=== PATIENT | male | born 2000 | race Caucasian/White ===

== ENCOUNTER 2019-04-12 12:53 | Emergency (ER) | payer BC ==
[2019-04-12] MEDS ORDERED: Sodium Chloride 0.9% 1,000 ML IV ONE (12:54)
[2019-04-12] MEDS ORDERED: Ketorolac 30 MG/ML SDV IVPUSH ONE (12:54)
[2019-04-12] MEDS ORDERED: Ondansetron 4 MG/2 ML SDV IVPUSH ONE (12:54)
--- NOTE | 2019-04-12 13:00 | EDM.PDOC ---
ED HPI GENERAL MEDICAL PROBLEM - General Chief Complaint: General Stated Complaint: ABD PAIN Time Seen by Provider: 04/12/19 13:00 Source of Information: Reports: Patient History Limitations: Reports: No Limitations - History of Present Illness INITIAL COMMENTS - FREE TEXT/NARRATIVE: HISTORY AND PHYSICAL: History of present illness: Patient is a 18-year-old male who presents to the emergency room with complaints of right lower quadrant pain. He states that the pain does radiate into his flank and groin. He did have some nausea this morning, has resolved since that time. Has been using Tylenol and ibuprofen. Last ibuprofen was at 10 AM this morning. Patient denies any fever, chills, headache, change in vision, syncope or near syncope. Denies any chest pain, back pain, shortness of breath or cough. Denies any diarrhea, constipation or dysuria. Has not noted any blood in urine or stool. Patient has been eating and drinking appropriately. Review of systems: As per history of present illness and below otherwise all systems reviewed and negative. Past medical history: As per history of present illness and as reviewed below otherwise noncontributory. Surgical history: As per history of present illness and as reviewed below otherwise noncontributory. Social history: See social history for further information Family history: As per history of present illness and as reviewed below otherwise noncontributory. Physical exam: General: Developed and well-nourished 18-year-old male. Alert and oriented. Nontoxic appearing and in no acute distress HEENT: Atraumatic, normocephalic, pupils equal and reactive bilaterally, negative for conjunctival pallor or scleral icterus, mucous membranes moist, TMs normal bilaterally, throat clear, neck supple, nontender, trachea midline. No drooling or trismus noted. No meningeal signs. No hot potato voice noted. Lungs: Clear to auscultation, breath sounds equal bilaterally, chest nontender. Heart: S1S2, regular rate and rhythm without overt murmur Abdomen: Soft, nondistended, right lower quadrant tenderness. Negative for masses or hepatosplenomegaly. Negative for costovertebral tenderness. Pelvis: Stable nontender. Genitourinary: Deferred. Rectal: Deferred. Skin: Intact, warm, dry. No lesions or rashes noted. Extremities: Atraumatic, moves all extremities per self without difficulty or deficits, negative for cords or calf pain. Neurovascular unremarkable. Neuro: Awake, alert, oriented. Cranial nerves II through XII unremarkable. Cerebellum unremarkable. Motor and sensory unremarkable throughout. Exam nonfocal. Notes: Lab work is unremarkable. CT shows a right sided hydronephrosis with a 2 mm distal right stone. This information was shared with the patient. Signs and symptoms that would prompt him to return to the emergency room or reviewed and discussed. Supportive care measures were reviewed and discussed. Voices understanding and is agreeable to plan of care. Denies any further questions or concerns at this time. Diagnostics: CBC, CMP, UA, CT abdomen and pelvis Therapeutics: IV fluid, morphine, Zofran Prescription: Flomax Tramadol Impression: Kidney stone, right Plan: 1. Increase her fluids. Take the medications as prescribed. 2. Tylenol and/or ibuprofen as needed for pain management. You may take tramadol for moderate to severe pain. 3. Follow-up with your primary care provider as we discussed. Return to the ED as needed and as discussed. Definitive disposition and diagnosis as appropriate pending reevaluation and review of above. Right abdominal/back Pain Score (Numeric/FACES): 7 Right testic;e Pain Score (Numeric/FACES): 8 - Related Data Allergies Allergy/AdvReac Type Severity Reaction Status Date / Time No Known Allergies Allergy Verified 04/12/19 13:02 Home Meds: Home Meds Tamsulosin [Tamsulosin 24 Hr] 0.4 mg PO DAILY #10 cap.er 04/12/19 [Rx] traMADol [Ultram] 50 mg PO Q4H PRN #15 tab 04/12/19 [Rx] ED ROS GENERAL - Review of Systems Review Of Systems: ROS reveals no pertinent complaints other than HPI. ED EXAM, GENERAL - Physical Exam Exam: See Below (See dictation) Course - Vital Signs Last Recorded V/S: Last Vital Signs Temp 97.8 F 04/12/19 13:03 Pulse 89 04/12/19 13:03 Resp 16 04/12/19 13:03 BP 141/87 H 04/12/19 13:03 Pulse Ox 93 L 04/12/19 13:03 - Orders/Labs/Meds Orders: Active Orders 24 hr Category Date Time Status UA RFX GEORGE AND CULT IF INDIC [URIN] Stat Lab 04/12/19 12:54 Ordered Labs: Laboratory Tests 04/12/19 04/12/19 Range/Units 13:08 13:08 WBC 6.78 (4.0-11.0) K/uL RBC 5.71 (4.50-5.90) M/uL Hgb 16.5 (13.0-17.0) g/dL Hct 47.0 (38.0-50.0) % MCV 82.3 (80.0-98.0) fL MCH 28.9 (27.0-32.0) pg MCHC 35.1 (31.0-37.0) g/dL RDW Std Deviation 37.0 (28.0-62.0) fl RDW Coeff of Wong 12 (11.0-15.0) % Plt Count 207 (150-400) K/uL MPV 10.00 (7.40-12.00) fL Neut % (Auto) 64.6 (48.0-80.0) % Lymph % (Auto) 26.5 (16.0-40.0) % [place] % (Auto) 6.9 (0.0-15.0) % Eos % (Auto) 1.3 (0.0-7.0) % Baso % (Auto) 0.7 (0.0-1.5) % Neut # (Auto) 4.4 (1.4-5.7) K/uL Lymph # (Auto) 1.8 (0.6-2.4) K/uL [place] # (Auto) 0.5 (0.0-0.8) K/uL Eos # (Auto) 0.1 (0.0-0.7) K/uL Baso # (Auto) 0.1 (0.0-0.1) K/uL Nucleated RBC % 0.0 /100WBC Nucleated RBCs # 0 K/uL Sodium 139 (136-148) mmol/L Potassium 3.9 (3.5-5.1) mmol/L Chloride 101 (98-107) mmol/L Carbon Dioxide 25.1 (21.0-32.0) mmol/L BUN 9 (7.0-18.0) mg/dL Creatinine 1.1 (0.8-1.3) mg/dL Est Cr Clr Drug Dosing 121.06 mL/min Estimated GFR (MDRD) > 60.0 ml/min Glucose 102 (74-106) mg/dL Calcium 9.6 (8.5-10.1) mg/dL Total Bilirubin 0.6 (0.2-1.0) mg/dL AST 37 (15-37) IU/L ALT 33 (14-63) IU/L Alkaline Phosphatase 33 L (46-116) U/L Total Protein 7.3 (6.4-8.2) g/dL Albumin 4.0 (3.4-5.0) g/dL Globulin 3.3 (2.6-4.0) g/dL Albumin/Globulin Ratio 1.2 (0.9-1.6) Meds: Medications Discontinued Medications Generic Name Dose Route Start Last Admin Trade Name Freq PRN Reason Stop Dose Admin Sodium Chloride 1,000 mls @ 999 mls/hr 04/12/19 12:54 04/12/19 13:09 Normal Saline IV 04/12/19 13:54 999 mls/hr STAT ONE Administration Ketorolac Tromethamine 30 mg 04/12/19 12:54 04/12/19 13:17 Toradol IVPUSH 04/12/19 12:55 Not Given ONETIME ONE Morphine Sulfate 2 mg 04/12/19 13:10 04/12/19 13:12 Morphine IVPUSH 04/12/19 13:11 2 mg ONETIME ONE Administration Morphine Sulfate Confirm 04/12/19 13:10 04/12/19 13:17 Morphine Administered 04/12/19 13:11 Not Given Dose 2 mg .ROUTE .STK-MED ONE Ondansetron HCl 4 mg 04/12/19 12:54 04/12/19 13:12 Zofran IVPUSH 04/12/19 12:55 4 mg ONETIME ONE Administration Departure - Departure Time of Disposition: 14:41 Disposition: Home, Self-Care 01 Clinical Impression: Kidney stone on right side - Discharge Information Prescriptions: Tamsulosin [Tamsulosin 24 Hr] 0.4 mg PO DAILY #10 cap.er traMADol [Ultram] 50 mg PO Q4H PRN #15 tab PRN Reason: Pain Instructions: Kidney Stones, [id number] Referrals: PCP,None [Primary Care Provider] - Forms: ED Department Discharge Additional Instructions: The following information is given to patients seen in the emergency department who are being discharged to home. This information is to outline your options for follow-up care. We provide all patients seen in our emergency department with a follow-up referral. The need for follow-up, as well as the timing and circumstances, are variable depending upon the specifics of your emergency department visit. If you don't have a primary care physician on staff, we will provide you with a referral. We always advise you to contact your personal physician following an emergency department visit to inform them of the circumstance of the visit and for follow-up with them and/or the need for any referrals to a consulting specialist. The emergency department will also refer you to a specialist when appropriate. This referral assures that you have the opportunity for follow-up care with a specialist. All of these measure are taken in an effort to provide you with optimal care, which includes your follow-up. Under all circumstances we always encourage you to contact your private physician who remains a resource for coordinating your care. When calling for follow-up care, please make the office aware that this follow-up is from your recent emergency room visit. If for any reason you are refused follow-up, please contact the [facility] Emergency Department at and asked to speak to the emergency department charge nurse. [facility] [address] [place] [address] [id number] [facility] - [facility]rology [address] [place] [id number] 1. Increase your fluids. Take the medications as prescribed. 2. Tylenol and/or ibuprofen as needed for pain management. You may take tramadol for moderate to severe pain. 3. Follow-up with your primary care provider as we discussed. Return to the ED as needed and as discussed. - My Orders Last 24 Hours: My Active Orders 04/12/19 12:54 UA RFX GEORGE AND CULT IF INDIC [URIN] Stat - Assessment/Plan Last 24 Hours: My Active Orders 04/12/19 12:54 UA RFX GEORGE AND CULT IF INDIC [URIN] Stat
[2019-04-12] MEDS ORDERED: Morphine 2 MG/ML Syringe IVPUSH ONE (13:10)
[2019-04-12] MEDS ORDERED: Morphine 2 MG/ML Syringe ONE (13:10)
[2019-04-12 13:42] LABS: BLOOD UREA NITROGEN,BUN 9 mg/dL (7.0-18.0); CARBON DIOXIDE,CO2 25.1 mmol/L (21.0-32.0); CHLORIDE,CL 101 mmol/L (98-107); GLUCOSE RANDOM 102 mg/dL (74-106); POTASSIUM,K 3.9 mmol/L (3.5-5.1); SODIUM,NA 139 mmol/L (136-148)
--- NOTE | 2019-04-12 14:20 | CT ---
Indication: Right-sided pain. Technique: Multiple contiguous axial images were obtained from the lung bases to the symphysis pubis without intravenous contrast enhancement. Please note that all CT scans at this facility use dose modulation, iterative reconstruction, and/or weight-based dosing when appropriate to reduce radiation dose to as low as reasonably achievable. Comparison: none. Findings: The lung bases are clear. No infiltrate, pleural effusion, pneumothorax is identified. The heart is normal in size. No pericardial effusion is identified. The unenhanced liver, gallbladder, spleen, pancreas, adrenals, left kidney are grossly normal. No intrahepatic biliary ductal dilatation is identified. No left-sided hydronephrosis is identified. Right-sided hydronephrosis and right-sided hydroureter identified. 2 millimeter distal right ureteral calculus is identified. This is best seen on image number 159, series 201. In the pelvis, the urinary bladder and prostate gland are grossly normal. Small and large bowel are normal in caliber. The appendix is normal in caliber. No free air or free fluid is identified within the abdomen or pelvis. No lytic or blastic lesions are identified within the spine. Impression: Right-sided hydronephrosis and hydroureter with a 2 mm distal right ureteral calculus. Please note that all CT scans at this facility use dose modulation, iterative reconstruction, and/or weight-based dosing when appropriate to reduce radiation dose to as low as reasonably achievable. Dictated by Nanci Chou MD @ Apr 12 2019 2:16PM Signed by Dr. Nanci Chou @ Apr 12 2019 2:18PM
== END 2019-04-12 15:00 | disposition home or self-care (01) ==
LOC: MW.ED 12:53
DX: N13.2 Hydronephrosis with renal and ureteral calculous obstruction (principal)
CPT/HCPCS: 74176; 80053; 85025; 96361; 96374; 96375; 99284; J2270; J2405; J7040